=== PATIENT | male | born 1965 | race Caucasian/White ===

== ENCOUNTER → 2022-01-03 | Outpatient (CLI) | payer BC ==
--- NOTE | 2022-01-03 15:00 | US ---
EXAMINATION TYPE: US scrotum with doppler. Grayscale and color Doppler Duplex imaging performed of t he scrotum. DATE OF EXAM: 01/03/2022 COMPARISON: NONE CLINICAL HISTORY: N44.0 TORSION OF TESTIS, UNSPECIFIED. Left side pain EXAM MEASUREMENTS: TESTICLES: Right Testicle: 4.1 x 2.3 x 2.7 cm Left Testicle: 40 x 2.3 x 4.0 cm slightly asymmetric increased color Doppler flow. EPIDIDYMIS HEAD: Right Epididymis: 1.0 x 1.2 x 1.2 cm Left Epididymis: 1.3 x 1.3 x 1.2 cm heterogenous increased vascularity. Doppler performed to assess for testicular vascularity; good bilateral color flow and waveforms are s een. There is no evidence of testicular torsion. Presence of hydroceles: no Presence of varicoceles: no IMPRESSION: . 1. Heterogenous left epididymis with vascularity concerning for epididymitis. 2. Appropriate color Doppler flow to the testes with slight asymmetric increased color Doppler flow in the with associated finding in #1 a left orchitis is not entirely excluded.
== END | disposition home or self-care (01) ==
LOC: RADUSWWP 14:15
PROVIDERS: ATTEND Family Medicine
DX: N44.00 Torsion of testis, unspecified (principal)
CPT/HCPCS: 76870; 93975

== ENCOUNTER → 2024-09-06 | Outpatient (CLI) | payer BC ==
--- NOTE | 2024-09-08 15:08 | MR ---
EXAMINATION TYPE: MR knee LT wo con DATE OF EXAM: 09/06/2024 1:31 PM COMPARISON: Outside radiograph 08/28/2024 CLINICAL INDICATION: Male, 59 years old with history of M25.562 PAIN IN LEFT KNEE, Left knee pain, in jury 2 yrs ago. TECHNIQUE: Multiplanar, multisequence imaging of the left knee is performed without IV contrast. FINDINGS: The ACL, PCL, and LCL complex are intact. There is mild edema on either side of the intact MCL. There is a complex multidirectional tear involving the posterior horn and body of the medial meniscus with some meniscal tissue extending into the inferior gutter. Mild diffuse thinning of medial compar tment articular cartilage volume. There is also a horizontal tear extending through the body and anterior horn of the lateral meniscus. Lateral compartment articular cartilage volume is maintained. Mild superficial cartilage irregularity along the medial lateral patellar facets. Trochlear articular cartilage is maintained. Extensor mechanism is intact. Nonspecific anterior subcutaneous soft tissue swelling. There is a mode rate knee joint effusion and thickened suprapatellar plica noted. No sizable Bedoya's cyst. Normal popliteal artery anatomy in muscle bulk. There is a 1.0 cm round intramedullary lesion proximal tibial shaft that shows narrow zone of transit ion and no associated edema or endosteal scalloping. Suspect a small chondroid lesion such and chondr maury. Otherwise, no suspicious bone marrow replacement. IMPRESSION: 1. Grade 1 MCL sprain. 2. Complex, multidirectional tear involving the posterior horn and body of the medial meniscus small amount of meniscal tissue extending into the inferior gutter. 3. Additional horizontal tear extending through the body and anterior horn of the lateral meniscus. 4. Moderate knee joint effusion and a thickened suprapatellar plica incidentally noted. Mild early de generative change in the patellofemoral compartment. 5. A 1 cm intramedullary lesion upper tibial shaft with narrow zone of transition and no associated e theron. Suspect incidental enchondroma. Consider a precautionary 6-12 month follow-up to ensure stabili ty. [facility], , 09/08/2024 3:05 PM
== END | disposition home or self-care (01) ==
LOC: RADMRIMAIN 12:59
PROVIDERS: ATTEND Orthopaedic Surgery
DX: S83.282A Other tear of lateral meniscus, current injury, left knee, initial encounter (principal); M17.12 Unilateral primary osteoarthritis, left knee

== ENCOUNTER → 2024-10-09 | Outpatient (CLI) | payer BC ==
[2024-10-09 18:31] LABS: Basophils # (A) 0.03 X 10*3/uL (0.00-0.10); Basophils % (A) 0.4 %; Eosinophils # (A) 0.23 X 10*3/uL (0.04-0.35); Eosinophils % (A) 3.4 %; HCT 46.1 % (39.6-50.0); HGB 15.7 g/dL (13.0-17.0); Immature Grans, Automated 0.30 %; Lymphocytes # (A) 1.75 X 10*3/uL (0.90-5.00); Lymphocytes % (A) 25.7 %; MCH 32.7 pg (27.0-32.0); MCHC 34.1 g/dL (32.0-37.0); MCV 96.0 FL (80.0-97.0); Monocytes # (A) 0.62 X 10*3/uL (0.20-1.00); Monocytes % (A) 9.1 %; NRBC Per 100 WBC 0 X 10*3/uL (0.00-0.01); Neutrophils # (A) 4.16 X 10*3/uL (1.80-7.70); Neutrophils % (A) 61.1 %; Platelet Count 218 X 10*3/uL (140-440); RBC 4.80 X 10*6/uL (4.40-5.60); RDW 12.5 % (11.5-14.5); WBC 6.81 X 10*3/uL (4.50-10.00)
[2024-10-09 19:27] LABS: Anion Gap 12.5 mmol/L (4.00-12.00); Carbon Dioxide 25.5 mmol/L (21.6-31.8); Chloride 99.0 mmol/L (96-109); Potassium 3.7 mmol/L (3.5-5.5); Sodium 137.0 mmol/L (135-145)
== END | disposition home or self-care (01) ==
LOC: LABPAT 11:41
PROVIDERS: ATTEND Orthopaedic Surgery
DX: Z01.818 Encounter for other preprocedural examination (principal); M23.92 Unspecified internal derangement of left knee
CPT/HCPCS: 80051; 85025; 93005

== ENCOUNTER → 2024-10-09 | Outpatient (CLI) | payer BC ==
--- NOTE | 2024-10-09 19:01 | CA ---
Transthoracic Echo Report Name: Schuyler Mortensen Age: 59 Gender: M : 1965 Exam Date: 10/09/2024 12:53 Exam Location: [place] [facility] Ht (in): 69 Wt (lb): 210 Ordering Physician: Carmencita Chen MD Attending/Referring Phys: Carmencita Chen MD [employer] Elvie Stephenson [facility] Procedure CPT: Indications: i10 Cardiac Hx: Technical Quality: Fair Contrast 1: Total Dose (mL): Contrast 2: Total Dose (mL): MEASUREMENTS (Male / Female) Normal Values 2D ECHO LV Diastolic Diameter PLAX 4.2 cm 4.2 - 5.9 / 3.9 - 5.3 cm LV Systolic Diameter PLAX 3.0 cm IVS Diastolic Thickness 1.3 cm 0.6 - 1.0 / 0.6 - 0.9 cm LVPW Diastolic Thickness 1.3 cm 0.6 - 1.0 / 0.6 - 0.9 cm LV Relative Wall Thickness 0.6 RV Internal Dim ED PLAX 3.6 cm LVOT Diameter 2.1 cm LA Systolic Diameter LX 4.3 cm 3.0 - 4.0 / 2.7 - 3.8 cm LV Diastolic Volume MOD BP 100.1 cm??? 67 - 155 / 56 - 104 cm??? LV Systolic Volume MOD BP 41.4 cm??? 22 - 58 / 19 - 49 cm??? LV Ejection Fraction MOD BP 58.6 % >= 55 % LV Cardiac Index MOD BP 1857.0 cm???/min???m??? LV Diastolic Volume MOD 4C 98.2 cm??? LV Systolic Volume MOD 4C 36.6 cm??? LV Ejection Fraction MOD 4C 62.7 % LV Cardiac Index MOD 4C 1948.3 cm???/min???m??? LV Diastolic Length 4C 8.0 cm LV Systolic Length 4C 6.5 cm LV Diastolic Volume MOD 2C 96.2 cm??? LV Systolic Volume MOD 2C 42.3 cm??? LV Ejection Fraction MOD 2C 56.0 % LV Cardiac Index MOD 2C 1706.4 cm???/min???m??? LV Diastolic Length 2C 8.6 cm LV Systolic Length 2C 7.2 cm Ascending Aorta Diameter 3.4 cm M-MODE Aortic Root Diameter MM 3.4 cm LA Systolic Diameter MM 3.7 cm LA Ao Ratio MM 1.1 AV Cusp Separation MM 2.2 cm DOPPLER AV Peak Velocity 127.4 cm/s AV Peak Gradient 6.5 mmHg LVOT Peak Velocity 111.7 cm/s LVOT Peak Gradient 5.0 mmHg AV Area Cont Eq pk 3.0 cm??? Mitral E Point Velocity 78.8 cm/s Mitral A Point Velocity 67.0 cm/s Mitral E to A Ratio 1.2 MV Deceleration Time 215.3 ms MV E' Velocity 6.3 cm/s Mitral E to MV E' Ratio 12.5 PV Peak Velocity 99.1 cm/s PV Peak Gradient 3.9 mmHg FINDINGS Left Ventricle Left ventricular ejection fraction is estimated at 55-60 %. Normal Left ventricular size, systolic function with no obvious regional wall motion abnormalities. Mildly increased left ventricular wall thickness. Right Ventricle Normal right ventricular size and function. Unable to estimate the right ventricular systolic pressure. Right Atrium Normal right atrial size. No right atrial thrombus or mass seen. Left Atrium Mildly increased left atrial diameter. No left atrial thrombus or mass present. Mitral Valve Mitral valve thickened. No mitral stenosis. No mitral regurgitation. Aortic Valve Trileaflet aortic valve. No aortic stenosis. No aortic regurgitation. Tricuspid Valve Structurally normal tricuspid valve. No tricuspid regurgitation. Pulmonic Valve Pulmonic valve not well visualized. No pulmonic stenosis. No pulmonic regurgitation. Pericardium No pericardial effusion. No pleural effusion. Aorta Normal size aortic root and proximal ascending aorta. CONCLUSIONS 1. Normal left ventricular size and systolic function 2. No significant valvular abnormality Previewed by: Dr. Remedios De La Cruz MD (Electronically Signed) Final Date: 09 October 2024 19:01
== END | disposition home or self-care (01) ==
LOC: RADECHMAIN 11:48
PROVIDERS: ATTEND Family Medicine
DX: I10 Essential (primary) hypertension (principal)
CPT/HCPCS: 93306